=== PATIENT | female | born 1940 | race Caucasian/White ===

== ENCOUNTER → 2016-11-10 | Outpatient (CLI) | payer OTHER ==
[~2016-11-10] MED LIST: GADAVIST IV PRN
--- NOTE | 2016-11-10 14:34 | DIAGNOSTIC IMAGING REPORT ---
BRAIN COMBO FOR MS HISTORY: Demyelinating disorder G35 Multiple [id number] Hemianopsia TECHNIQUE: Multiplanar multisequence MRI of the brain was performed both before and after the intravenous administration of contrast. COMPARISON STUDY: 10/09/2015 FINDINGS: Diffusion-weighted images show evidence for cortical focus of increased signal posterior right parietal lobe region. Small focus of subtle increase in signal right optic radiations. No evidence for abnormal postcontrast enhancement. 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 There is again negative for abnormal postcontrast enhancement. Sella sella and parasellar regions are unremarkable. Multiple foci of increased signal within the periventricular deep white matter regions are generally stable. This is with the exception of a small foci of increased signal over the posterior parietal convexity and right optic radiations. IMPRESSION: 1. Findings consistent with a demyelinating disorder with the vast majority of foci of altered signal unchanged. 2. 2 new foci of increased signal involving the cortical region posterior right parietal lobe as well as right optic radiations. 3. No evidence for abnormal postcontrast enhancement on the current scan. 4. Overall, this study is stable to minimally progressive compared to the prior exam. The above report was generated using voice recognition software. It may contain grammatical, syntax or spelling errors. Electronically signed by: Bhargav Mujica M.D. 11/10/2016 2:33 PM Dictated Date/Time: 11/10/2016 2:27 PM
== END | disposition home or self-care (01) ==
LOC: C.MRIBC 13:22
PROVIDERS: ATTEND Psychiatry & Neurology Neurology
DX: G35 Multiple sclerosis (principal); H53.47 Heteronymous bilateral field defects